=== PATIENT | female | born 1955 | race Caucasian/White ===

== ENCOUNTER 2016-10-04 10:36 | Outpatient (CLI) | payer BC ==
[2015-02-24 12:00] VITALS: BP 145/72
== END 2016-10-04 10:37 ==
LOC: LABRHC 10:36
PROVIDERS: ATTEND Physician Assistant
DX: R31.9 Hematuria, unspecified (principal)
CPT/HCPCS: 87086

== ENCOUNTER 2016-12-30 09:28 | Outpatient (CLI) | payer BC ==
[2015-02-24 12:00] VITALS: BP 145/72
[2016-12-30 10:29] LABS: eGFR (African) > 60; eGFR (Non-African) > 60
== END 2016-12-30 09:30 ==
LOC: LAB 09:28
PROVIDERS: ATTEND Family Medicine
DX: Z00.00 Encounter for general adult medical examination without abnormal findings (principal)
CPT/HCPCS: 36415; 80053; 80061; 84443

== ENCOUNTER 2017-03-01 11:43 | Outpatient (CLI) | payer BC ==
[2015-02-24 12:00] VITALS: BP 145/72
--- NOTE | 2017-03-01 15:14 | Diagnostic Imaging Report ---
SUNNI RECIO [facility] [address] [facility].[address] [id number] Report Submission Date: Mar 01, 2017 3:07:06 PM CDT Patient Study Name: GINA SCHULTZ Date: Mar 01, 2017 12:05:26 PM CDT Modality Type: US Gender: F Description: US ABD LIMITED : 59 Institution: [facility] Physician: SUNNI RECIO Ultrasound abdomen limited History: Right lower quadrant pain intermittently for 2 weeks. History of appendectomy and oophorectomy. Findings: Limited sonography of the right lower quadrant reveals heterogeneous echogenicity in anterior omental and periumbilical adipose tissue. There is no evidence mass, fluid collection, or ventral hernia. Impression: Unremarkable limited abdominal sonogram. CT is more sensitive for depiction of right lower quadrant and abdominal wall structures. Electronically signed on Mar 01, 2017 3:07:06 PM CDT by: Chepe GARNER
== END 2017-03-01 11:44 ==
LOC: RAD 11:43
PROVIDERS: ATTEND Physician Assistant
DX: R10.31 Right lower quadrant pain (principal)
CPT/HCPCS: 76705

== ENCOUNTER 2017-03-04 07:52 | Outpatient (CLI) | payer BC ==
[2015-02-24 12:00] VITALS: BP 145/72
[2017-03-04 08:58] LABS: eGFR (African) > 60; eGFR (Non-African) > 60
--- NOTE | 2017-03-04 14:43 | Diagnostic Imaging Report ---
SUNNI RECIO [facility] [address] [facility].[address] [id number] Report Submission Date: Mar 04, 2017 11:47:40 AM CDT Patient Study Name: GINA SCHULTZ Date: Mar 04, 2017 9:32:44 AM CDT Modality Type: CT\SR Gender: F Description: CT ABD & PELVIS W/ CON : 59 Institution: [facility] Physician: SUNNI RECIO CT of the abdomen and pelvis with contrast CLINICAL HISTORY: Intermittent right lower quadrant abdominal pain for 3 weeks. Contrast administered: 94 mL of Omnipaque. TECHNIQUE: CT of the abdomen and pelvis is performed with oral and intravenous administration of contrast. Sagittal and coronal reconstructions are performed by the technologist. FINDINGS: The visualized lung bases are clear. The liver and spleen demonstrate normal attenuation without focal defect. Hepatic cysts are incidentally noted in the right hepatic lobe and caudate lobe. Spleen demonstrates normal attenuation without focal defect. The gallbladder is normally distended. There is no pancreatic or adrenal abnormality. The kidneys demonstrate symmetric enhancement. Vascular calcification is present in the abdominal aorta without evidence of aneurysm. There is no retroperitoneal mass or significant adenopathy. The appendix is surgically absent. The bladder is unremarkable. The uterus is surgically absent. There is no free fluid in the pelvis or abdomen. IMPRESSION: Postoperative changes. Hepatic cysts. Vascular calcification. Electronically signed on Mar 04, 2017 11:47:40 AM CDT by: Terrence GARNER
== END 2017-03-04 08:02 ==
LOC: RAD 07:52
PROVIDERS: ATTEND Physician Assistant
DX: R10.31 Right lower quadrant pain (principal); Z00.00 Encounter for general adult medical examination without abnormal findings
CPT/HCPCS: 36415; 74177; 82565; Q9966; A9698

== ENCOUNTER 2017-03-17 10:16 | Outpatient (CLI) | payer BC ==
[2015-02-24 12:00] VITALS: BP 145/72
== END 2017-03-17 10:17 ==
LOC: OUT 10:16
PROVIDERS: ATTEND Colon & Rectal Surgery
DX: K40.90 Unilateral inguinal hernia, without obstruction or gangrene, not specified as recurrent (principal)
CPT/HCPCS: 99214

== ENCOUNTER 2017-04-21 06:57 | Day surgery (SDC) | payer BC ==
[2015-02-24 12:00] VITALS: BP 145/72
[2017-04-21] MEDS ORDERED: SALINE FLUSH 10 ML DISP.SYRIN IVF ONE (08:00)
[2017-04-21] MEDS ORDERED: HYDROcodone /APAP 5/325 1 EACH TABLET ONE ×2 (08:00→10:08)
[2017-04-21] MEDS ORDERED: BUPIVACAINE HCL/PF 2.5 MG/ML 10ML VIAL IV ONE (08:00)
[2017-04-21] MEDS ORDERED: PROPOFOL 200 MG/20 ML VIAL IV ONE (08:00)
[2017-04-21] MEDS ORDERED: fentaNYL CITRATE/PF 100 MCG/ 2ML AMP ONE (08:00)
[2017-04-21] MEDS ORDERED: SEVOFLURANE 250 ML LIQUID IH ONE (08:00)
[2017-04-21] MEDS ORDERED: MIDAZOLAM HCL 2 MG/2 ML VIAL ONE (08:00)
[2017-04-21] MEDS ORDERED: ATROPINE SULFATE IJ ONE (08:00)
[2017-04-21] MEDS ORDERED: LACTATED RINGERS 1,000 ML IV.SOLN IV ONE (08:00)
[2017-04-21] MEDS ORDERED: ACETAMINOPHEN 1,000 MG/100 ML INJ IV ONE (08:00)
[2017-04-21] MEDS ORDERED: BACITRACIN 50,000 UNIT VIAL ONE (08:00)
[2017-04-21] MEDS ORDERED: ceFAZolin SODIUM 1 GM VIAL ONE (08:00)
[2017-04-21] MEDS ORDERED: GLYCOPYRROLATE 0.2 MG/1 ML 1 ML ONE (08:00)
[2017-04-21] MEDS ORDERED: DEXAMETHASONE SOD PHOS 4 MG/ML VIAL ONE (08:00)
--- NOTE | 2017-04-22 07:55 | Operative Note ---
SURGEON: Jamal Rogel MD ANESTHESIA: General anesthesia. ESTIMATED BLOOD LOSS: Minimal. COMPLICATIONS: None. PREOPERATIVE DIAGNOSIS: Right inguinal hernia. POSTOPERATIVE DIAGNOSIS: Right inguinal hernia. PROCEDURE PERFORMED: Repair of right inguinal hernia with mesh. INDICATIONS FOR THE PROCEDURE: This is a 61-year-old woman with a symptomatic right inguinal hernia who presents for repair. DESCRIPTION OF PROCEDURE: Patient was brought to the operating room with general anesthesia achieved. The right groin was prepped and draped. An oblique incision was made and carried to the subcutaneous tissues. The external oblique fascia was sharply divided. The round ligament and the remainder of the cord were encircled with a Gibson drain. The ilioinguinal nerve was preserved. She had a indirect hernia with a large herniated cord lipoma. The cord lipoma was dissected free and excised. The inguinal floor was repaired with Marlex mesh. It was sewn to the pubic tubercle and then along the shelving edge of the inguinal ligament inferiorly with a running 2-0 Prolene suture and sewn to transversalis fascia superiorly. The tails of the mesh were tacked lateral to the ring. The wound was irrigated and suctioned. There was no bleeding. The external oblique fascia was closed with running a 2-0 Vicryl suture and the Beckie's fascia with 3-0 Vicryl. The skin was closed with a 4-0 Vicryl subcuticular suture. Steri- Strips and a dressing were placed over the incision. The patient was awakened and extubated in the operating room and taken to the recovery room in good condition. APPARENT FINDINGS: Indirect hernia with a large cord lipoma. cc: Dr. She GARNER
== END 2017-04-21 07:00 ==
LOC: OPSURG 06:57
PROVIDERS: ATTEND Colon & Rectal Surgery
DX: K40.90 Unilateral inguinal hernia, without obstruction or gangrene, not specified as recurrent (principal)
CPT/HCPCS: A9270; J0461; J0690; J1100; J2250; J2704; J3010; J3490; J7030; J7120; 49507; C1781; S1016

== ENCOUNTER 2017-05-19 09:50 | Outpatient (CLI) | payer BC ==
[2015-02-24 12:00] VITALS: BP 145/72
== END 2017-05-19 09:51 ==
LOC: OUT 09:50
PROVIDERS: ATTEND Colon & Rectal Surgery
DX: K40.90 Unilateral inguinal hernia, without obstruction or gangrene, not specified as recurrent (principal)
CPT/HCPCS: 99213

== ENCOUNTER 2017-12-22 09:35 | Outpatient (CLI) | payer BC ==
[2015-02-24 12:00] VITALS: BP 145/72
[2017-12-22 10:17] LABS: eGFR (African) > 60; eGFR (Non-African) > 60
== END 2017-12-22 09:36 ==
LOC: LAB 09:35
PROVIDERS: ATTEND Family Medicine
DX: Z00.00 Encounter for general adult medical examination without abnormal findings (principal)
CPT/HCPCS: 36415; 80053; 80061; 84443

== ENCOUNTER 2018-10-17 09:15 | Outpatient (CLI) | payer BC ==
[2015-02-24 12:00] VITALS: BP 145/72
== END 2018-10-17 09:17 ==
LOC: LAB 09:15
PROVIDERS: ATTEND Podiatrist Foot & Ankle Surgery
DX: B35.1 Tinea unguium (principal)
CPT/HCPCS: 36415; 80076

== ENCOUNTER 2019-01-08 10:19 | Outpatient (CLI) | payer BC ==
[2015-02-24 12:00] VITALS: BP 145/72
[2019-01-17 15:35] LABS: HDL 63 mg/dL (>40); eGFR (Non-African) > 60
== END 2019-01-08 10:24 | disposition home or self-care (01) ==
LOC: LAB 10:19
PROVIDERS: ATTEND Family Medicine
DX: Z00.00 Encounter for general adult medical examination without abnormal findings (principal)
CPT/HCPCS: 36415; 80053; 80061; 84443

== ENCOUNTER 2019-02-11 19:54 | Emergency (ER) | payer BC ==
[2019-02-11] MEDS: 0.9 % SODIUM CHLORIDE 1,000 ML IV ONE (20:50)
--- NOTE | 2019-02-11 20:55 | ED Physician Documentation ---
General Adult - HISTORIAN Historian: patient - HPI Chief Complaint: General Adult Additional Information: Patient is a 63-year-old female who presents to the ER with family. Patient state around 19:30 she was sitting on the commode and suddenly became sweaty, face got really red, and she felt like her heart was racing. She got a cold wash cloth and sat there for a moment- she then tried to move to the bed and had the same episode. She denies any nausea, vomiting or diarrhea. She just finished a round of Amoxil a week ago because she is scheduled to have a tooth removed tomorrow. She denies any chest pain or shortness of breath- denies any TIA/CVA symptoms. Onset: hours (19:30) Timing: better Severity: moderate Modifying Factors: mowed the yard 3 days ago - ROS CONST: no problems EYES/ENT: none CVS/RESP: none GI/: none MS/SKIN/LYMPH: none NEURO/PSYCH: dizziness - PAST HX Past History: hypertension, other (hypothyroid) Other History: other (HLD) Surgeries/Procedures: hysterectomy, other (appendectomy, inguinal hernia) Immunizations: UTD Allergies/Adverse Reactions: Allergies Allergy/AdvReac Type Severity Reaction Status Date / Time No Known Drug Allergies Allergy Verified 02/11/19 21:23 Home Medications: Ambulatory Orders Medication Instructions Recorded Aspirin [Aspir-Low] 81 mg PO DAILY 02/11/19 - SOCIAL HX Smoking History: non-smoker Alcohol Use: none Drug Use: none - FAMILY HX Family History: No - VITAL SIGNS Vital Signs: Vital Signs Temp Pulse Resp BP Pulse Ox 145/72 02/24/15 11:59 - REVIEWED ASSESSMENTS Nursing Assessment Reviewed: Yes Vitals Reviewed: Yes Progress - Progress Progress: 21:20 Patient has been up to the bathroom twice and had 2 large bowel movements- she states that she feels 100% better- patient is embarrassed; she states "I can't believe I just had too poop". Explained that constipation can cause a patient to get lightheaded, dizzy, and even pass out. Patient states that she feels much better. ED Results Lab/Radiology - Lab Results Lab Results: WBC 4.6, Hgb 11.7, Hct 36.1, platelets 181 Na 143, K+ 3.7, Cl 108, CO2 25, Glucose 194, BUN/Cr 23/ 0.95 CK 88 - Orders Orders: ED Orders Category Date Time Status Continuous EKG monitoring Q30M Care 02/11/19 20:32 Active Continuous Pulse Oximetry Q30M Care 02/11/19 20:[address] IV Lock 1T Care 02/11/19 20:32 Active CBC/PLATELET/DIFF Routine Lab 02/11/19 20:35 Received CKMB Stat Lab 02/11/19 20:35 Received CMP Routine Lab 02/11/19 20:35 Received CREATINE KINASE Routine Lab 02/11/19 20:35 Received TROPONIN I Stat Lab 02/11/19 20:35 Received 0.9 % Sodium Chloride [Normal Saline] 1,000 ml Med 02/11/19 20:44 Active IV Q1H Oxygen Daily Oxygen 02/11/19 20:45 Ordered EKG WITH COMPARISON Stat Ther 02/11/19 20:32 Ordered General Adult Physical Exam - PHYSICAL EXAM GENERAL APPEARANCE: no distress EENT: eye inspection normal, ENT inspection normal, pharynx normal, CHERRY, no nystagmus NECK: normal inspection, supple RESPIRATORY: no resp distress, chest non-tender, breath sounds normal CVS: reg rate & rhythm, heart sounds normal, equal pulses, no murmur, no gallop, no JVD ABDOMEN: soft, normal bowel sounds SKIN: warm/dry, normal color EXTREMITIES: non-tender, normal range of motion, no evidence of injury NEURO: oriented X3, CN's nml as tested, motor nml, sensation nml, mood/affect nml, cognition normal Discharge Clincal Impression: Dehydration, Diarrhea, Vaso vagal episode Clincal Impression: (Ruled Out): Constipation Referrals: She Malone MD [Primary Care Provider] - 2 Days Additional Instructions: Increase water intake Stay indoors- stay cool- avoid the heat Follow up with PCP next week for re-evaluation Condition: Good Disposition: 01 HOME, SELF-CARE Decision to Admit: NO Decision Time: 21:55
[2019-02-11 22:41] VITALS: BP 165/67
[2019-02-12 06:55] LABS: APPEARANCE,URINE CLEAR (CLEAR); COLOR,URINE YELLOW (YELLOW); OCCULT BLOOD,URINE NEGATIVE (NEGATIVE); PH URINE 5.5 (5.0 - 8.0); UROBILINOGEN URINE 0.2 Eu (0.2-1.0)
[2019-02-12 07:08] LABS: eGFR (Non-African) > 60
[2019-02-12 07:09] LABS: BASOPHILS % 0.3 % (0.0-1.5); NEUTROPHILS # 2.7 # k/uL (1.4-7.7)
== END 2019-02-11 22:10 | disposition home or self-care (01) ==
LOC: ED 19:54
DX: E86.0 Dehydration (principal); R19.7 Diarrhea, unspecified; R55 Syncope and collapse
CPT/HCPCS: 80053; 81002; 82550; 82553; 84484; 85025; 93005; 96360; 99284; J7030; S1016

== ENCOUNTER 2019-06-05 15:07 | Outpatient (CLI) | payer BC | END 2019-06-05 15:12 | LOC: LABRHC 15:07 | PROVIDERS: ATTEND Family Medicine | DX: R30.0 Dysuria (principal) | CPT/HCPCS: 87086 ==